=== PATIENT | female | born 1935 | race Caucasian/White ===

== ENCOUNTER 2023-03-24 19:25 | Inpatient (IN) | payer OTHER, MEDICAID ==
[~2023-03-24] VITALS: Ht 165.1 cm; Wt 50.8 kg
[2023-03-24 19:37] VITALS: BP_SYST 155
[2023-03-24] MEDS ORDERED: NACL 0.9% 1,000 ML IV ONE ×3 (20:15→22:30)
[2023-03-24 20:29] LABS: HEMOGLOBIN 10.2 g/dL (12.0-16.0); MEAN CORPUSCULAR HEMOGLOBIN 30 pg (27-31); RED CELL DISTRIBUTION WIDTH 16.3 % (9.0-15.0)
[2023-03-24 20:33] LABS: ANION GAP 10 (5-15); CALCIUM 9.3 mg/dL (8.4-11.0); CHLORIDE 92 mmol/L (98-107); CREATININE 1.45 mg/dL (0.55-1.30); GLUCOSE 277 mg/dL (70-99); UREA NITROGEN, BLOOD 28 mg/dL (8-21)
[2023-03-24 20:37] LABS: HEMATOCRIT 31.4 % (36-48); MEAN CORPUSCULAR HGB CONC 32 % (32-36); MEAN CORPUSCULAR VOLUME 92 fL (79.0-98.0); PLATELET COUNT (AUTO) 203 K/uL (130-430); RED BLOOD CELL COUNT(AUTO) 3.42 MIL/uL (4.2-6.2); WHITE BLOOD COUNT (AUTO) 13.5 K/uL (4.8-10.8)
[2023-03-24 20:38] LABS: ALANINE AMINOTRANSFERASE 262 U/L (12-78); ALBUMIN 3.6 g/dL (3.4-4.8); ASPARTATE AMINOTRANSFERASE 417 U/L (10-37); TOTAL BILIRUBIN 3.3 mg/dL (0.0-1.0)
[2023-03-24 20:44] LABS: BAND % (MANUAL) 23 % (0-6); BASOPHILS % (MANUAL) 0 % (0-2); EOSINOPHILS % (MANUAL) 0 % (0-7); LYMPHOCYTES % (MANUAL) 3 % (20-46); MONOCYTES % (MANUAL) 2 % (0-11)
[2023-03-24 21:10] LABS: BILIRUBIN,URINE NEGATIVE (NEGATIVE); BLOOD, URINE NEGATIVE (NEGATIVE); CLARITY/URINE CLEAR (CLEAR); COLOR,URINE YELLOW (YELLOW); GLUCOSE,URINE TRACE (NEGATIVE); KETONES,URINE NEGATIVE (NEGATIVE); LEUKOCYTE ESTERASE ,URINE TRACE (NEGATIVE); NITRITE, URINE NEGATIVE (NEGATIVE); PH,URINE 6.5 (5.0-8.0); PROTEIN URINE 1+ (NEGATIVE); UROBILINOGEN,URINE 0.2 (0.2-1.0)
[2023-03-24 21:21] LABS: BACTERIA,URINE None Seen /HPF (None Seen); RBC,URINE NONE SEEN /HPF (0-3)
[2023-03-24 21:22] LABS: MUCUS,URINE None Seen /LPF (None Seen)
[2023-03-24] MEDS ORDERED: cefTRIAXone 1 GM in D5W 50 ML IV ONE (21:30)
[2023-03-24] MEDS ORDERED: cefTRIAXone 1 GM VIAL ONE (21:45)
[2023-03-24] MEDS ORDERED: METF-518 PO (22:23)
[2023-03-24 23:23] VITALS: BP_SYST 138
[2023-03-24 23:25] VITALS: BP_SYST 101
[2023-03-25] MEDS: PIPERACILLIN/TAZO 3.375 GM in NS 50 ML IV SCH ×4 (00:18→21:11)
[2023-03-25] MEDS ORDERED: PIPERACILLIN/TAZOBACTAM 3.375 GM/VIAL (ZOSYN) IV ONE ×2 (00:19)
[2023-03-25 05:42] LABS: BASOPHILS # (AUTO) 0.1 K/uL (0.0-0.2); BASOPHILS % (AUTO) 0.4 % (0.0-2.0); EOSINOPHILS % (AUTO) 0.3 % (0.0-4.0); HEMATOCRIT 25.2 % (36-48); HEMOGLOBIN 8.3 g/dL (12.0-16.0); LYMPHOCYTES # (AUTO) 0.8 K/uL (1.0-5.5); LYMPHOCYTES % (AUTO) 4.8 % (20.5-51.5); MEAN CORPUSCULAR HEMOGLOBIN 30 pg (27-31); MEAN CORPUSCULAR HGB CONC 33 % (32-36); MEAN CORPUSCULAR VOLUME 91 fL (79.0-98.0); MONOCYTES # (AUTO) 0.7 K/uL (0.0-1.0); MONOCYTES % (AUTO) 3.9 % (1.7-9.3); NEUTROPHILS % (AUTO) 90.6 % (40.0-70.0); PLATELET COUNT (AUTO) 163 K/uL (130-430); RED BLOOD CELL COUNT(AUTO) 2.77 MIL/uL (4.2-6.2); RED CELL DISTRIBUTION WIDTH 16.3 % (9.0-15.0); WHITE BLOOD COUNT (AUTO) 16.6 K/uL (4.8-10.8)
[2023-03-25 05:49] LABS: ALANINE AMINOTRANSFERASE 199 U/L (12-78); ALBUMIN 2.5 g/dL (3.4-4.8); ANION GAP 8 (5-15); ASPARTATE AMINOTRANSFERASE 208 U/L (10-37); CALCIUM 7.6 mg/dL (8.4-11.0); CHLORIDE 101 mmol/L (98-107); CREATININE 1.34 mg/dL (0.55-1.30); GLUCOSE 256 mg/dL (70-99); TOTAL BILIRUBIN 3.4 mg/dL (0.0-1.0); UREA NITROGEN, BLOOD 25 mg/dL (8-21)
[2023-03-25 08:37] VITALS: BP_SYST 138
[2023-03-25 12:50] VITALS: BP_SYST 157
[2023-03-25] MEDS ORDERED: METOPROLOL SUCCINATE 50 MG TAB.SR.24H (TOPROL XL) PO ONE (14:45)
[2023-03-25] MEDS: NACL 0.9% 1,000 ML IV SCH (15:16)
[2023-03-25] MEDS ORDERED: D5W 1,000 ML IV PRN (15:30)
[2023-03-25] MEDS ORDERED: DEXTROSE 50% JECT 50 ML DISP.SYRIN IVP PRN (15:30)
[2023-03-25] MEDS ORDERED: GLUCOSE (DEXTROSE) ORAL GEL -Adults PO PRN (15:30)
[2023-03-25 17:51] VITALS: BP_SYST 147
[2023-03-25] MEDS ORDERED: metFORMIN HCL 500 MG TABLET PO SCH (18:00)
[2023-03-25 20:30] VITALS: BP_SYST 139
[2023-03-26 00:13] VITALS: BP_SYST 147
[2023-03-26 05:23] LABS: BASOPHILS # (AUTO) 0.1 K/uL (0.0-0.2); BASOPHILS % (AUTO) 0.5 % (0.0-2.0); EOSINOPHILS # (AUTO) 0.7 K/uL (0.0-0.4); EOSINOPHILS % (AUTO) 6.6 % (0.0-4.0); HEMATOCRIT 23.9 % (36-48); HEMOGLOBIN 8.2 g/dL (12.0-16.0); LYMPHOCYTES # (AUTO) 1.4 K/uL (1.0-5.5); LYMPHOCYTES % (AUTO) 14.3 % (20.5-51.5); MEAN CORPUSCULAR HEMOGLOBIN 31 pg (27-31); MEAN CORPUSCULAR HGB CONC 34 % (32-36); MEAN CORPUSCULAR VOLUME 91 fL (79.0-98.0); MONOCYTES # (AUTO) 0.7 K/uL (0.0-1.0); MONOCYTES % (AUTO) 6.7 % (1.7-9.3); NEUTROPHILS # (AUTO) 7.2 K/uL (1.8-7.7); NEUTROPHILS % (AUTO) 71.9 % (40.0-70.0); PLATELET COUNT (AUTO) 150 K/uL (130-430); RED BLOOD CELL COUNT(AUTO) 2.62 MIL/uL (4.2-6.2); RED CELL DISTRIBUTION WIDTH 16.4 % (9.0-15.0)
[2023-03-26] MEDS: PIPERACILLIN/TAZO 3.375 GM in NS 50 ML IV SCH ×2 (05:29→15:03)
[2023-03-26 05:57] LABS: ALANINE AMINOTRANSFERASE 132 U/L (12-78); ALBUMIN 2.4 g/dL (3.4-4.8); ANION GAP 10 (5-15); ASPARTATE AMINOTRANSFERASE 85 U/L (10-37); CALCIUM 8.1 mg/dL (8.4-11.0); CHLORIDE 104 mmol/L (98-107); CREATININE 1.45 mg/dL (0.55-1.30); GLUCOSE 167 mg/dL (70-99); TOTAL BILIRUBIN 4.1 mg/dL (0.0-1.0); UREA NITROGEN, BLOOD 20 mg/dL (8-21)
[2023-03-26 07:45] VITALS: BP_SYST 160
[2023-03-26] MEDS: METOPROLOL SUCCINATE 50 MG TAB.SR.24H (TOPROL XL) PO SCH (09:37)
[2023-03-26] MEDS: NACL 0.9% 1,000 ML IV SCH (09:38)
[2023-03-26] MEDS ORDERED: METO-542 PO (11:10)
[2023-03-26 12:00] VITALS: BP_SYST 150
[2023-03-26 16:55] VITALS: BP_SYST 149
[2023-03-26 20:00] VITALS: BP_SYST 211
[2023-03-26] MEDS: cloNIDine HCL 0.1 MG TABLET PO PRN (20:50)
[2023-03-26] MEDS ORDERED: POTASSIUM CHLORIDE 20 MEQ/PKT PACKET PO ONE (21:00)
[2023-03-27] VITALS: BP_SYST 164
[2023-03-27] MEDS: cloNIDine HCL 0.1 MG TABLET PO PRN (00:16)
[2023-03-27 03:33] VITALS: BP_SYST 164
[2023-03-27 05:00] VITALS: BP_SYST 153
[2023-03-27 06:21] LABS: BASOPHILS # (AUTO) 0.1 K/uL (0.0-0.2); BASOPHILS % (AUTO) 0.9 % (0.0-2.0); EOSINOPHILS # (AUTO) 0.9 K/uL (0.0-0.4); HEMATOCRIT 24.8 % (36-48); HEMOGLOBIN 8.4 g/dL (12.0-16.0); LYMPHOCYTES # (AUTO) 1.6 K/uL (1.0-5.5); LYMPHOCYTES % (AUTO) 21.6 % (20.5-51.5); MEAN CORPUSCULAR HEMOGLOBIN 31 pg (27-31); MEAN CORPUSCULAR HGB CONC 34 % (32-36); MEAN CORPUSCULAR VOLUME 91 fL (79.0-98.0); MONOCYTES # (AUTO) 0.6 K/uL (0.0-1.0); MONOCYTES % (AUTO) 8.3 % (1.7-9.3); NEUTROPHILS # (AUTO) 4.2 K/uL (1.8-7.7); NEUTROPHILS % (AUTO) 57.2 % (40.0-70.0); PLATELET COUNT (AUTO) 179 K/uL (130-430); RED BLOOD CELL COUNT(AUTO) 2.73 MIL/uL (4.2-6.2); RED CELL DISTRIBUTION WIDTH 16.5 % (9.0-15.0); WHITE BLOOD COUNT (AUTO) 7.3 K/uL (4.8-10.8)
[2023-03-27 06:39] LABS: ANION GAP 6 (5-15); CALCIUM 8.5 mg/dL (8.4-11.0); CHLORIDE 103 mmol/L (98-107); CREATININE 1.21 mg/dL (0.55-1.30); GLUCOSE 219 mg/dL (70-99); UREA NITROGEN, BLOOD 13 mg/dL (8-21)
[2023-03-27] MEDS: NACL 0.9% 1,000 ML IV SCH (06:45)
[2023-03-27 07:20] VITALS: BP_SYST 140
[2023-03-27] MEDS: METOPROLOL SUCCINATE 50 MG TAB.SR.24H (TOPROL XL) PO SCH (08:02)
[2023-03-27 08:06] LABS: HEPATITIS A AB, IgM Negative (Negative); HEPATITIS B CORE AB, IgM Negative (Negative); HEPATITIS B SURFACE AG Negative (Negative)
[2023-03-27] MEDS ORDERED: levoFLOXacin 250 MG TABLET PO SCH (10:00)
[2023-03-27 11:24] VITALS: BP_SYST 140
== END 2023-03-27 11:40 | disposition home or self-care (01) | DRG 682 ==
LOC: SED 19:25 → STU 21:36 → SMU 03-25 14:04
PROVIDERS: ADMIT Internal Medicine; ATTEND Internal Medicine
DX: N17.9 Acute kidney failure, unspecified (principal); R65.11 Systemic inflammatory response syndrome (SIRS) of non-infectious origin with acute organ dysfunction; E87.1 Hypo-osmolality and hyponatremia; Z68.1 Body mass index [BMI] 19.9 or less, adult; K21.9 Gastro-esophageal reflux disease without esophagitis; I12.9 Hypertensive chronic kidney disease with stage 1 through stage 4 chronic kidney disease, or unspecified chronic kidney disease; E11.22 Type 2 diabetes mellitus with diabetic chronic kidney disease; N18.2 Chronic kidney disease, stage 2 (mild); E86.0 Dehydration; Z79.84 Long term (current) use of oral hypoglycemic drugs; Z79.899 Other long term (current) drug therapy
CPT/HCPCS: 36415; 71045; 76376; 76705; 80048; 80053; 80074; 81000; 83605; 83880; 85007; 85025; 85027; 87040; 87086; 93005; 96361; 96365; 99285; G0378; J0696; J2543